=== PATIENT | female | born 1995 | race Two or more races ===

== ENCOUNTER 2018-05-08 20:52 | Emergency (ER) | payer OTHER ==
[~2018-05-08] VITALS: Ht 157.5 cm; Wt 53.1 kg
[2018-05-08 21:23] VITALS: BP 108/61
[2018-05-08] MEDS ORDERED: NAPR500T8 PO (21:52)
[2018-05-08] MEDS ORDERED: ORPH100T PO (21:52)
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
[2018-05-08] MEDS ORDERED: KETOROLAC 30 MG/ML VIAL. IM ONE (22:00)
== END 2018-05-08 22:02 | disposition home or self-care (01) ==
LOC: ER 20:52
DX: M54.42 Lumbago with sciatica, left side (principal)
CPT/HCPCS: 81025; 96372; 99283; J1885

== ENCOUNTER 2018-05-25 19:11 | Emergency (ER) | payer OTHER ==
[~2018-05-25] VITALS: Ht 162.6 cm; Wt 53.1 kg
[~2018-05-25 19:11] MED LIST: NAPR500T8 PO; ORPH100T PO
[2018-05-25 19:30] VITALS: BP 113/59
[2018-05-25 19:55] LABS: BILIRUBIN,URINE NEGATIVE (NEG); CLARITY,URINE CLEAR; COLOR,URINE YELLOW; NITRITE,URINE NEGATIVE (NEG); PH,URINE 6.5; PROTEIN,URINE NEGATIVE (NEG-TRACE); UROBILINOGEN,URINE 0.2 mg/dL (0.2 mg/dL)
[2018-05-25 20:08] LABS: BACTERIA,URINE FEW /HPF (0-FEW); RBC,URINE OCC /HPF (0-2); SQUAMOUS EPITHELIAL CELL,UR FEW /LPF; WBC,URINE OCC /HPF (0-4)
--- NOTE | 2018-05-25 20:55 | RAD ---
Examination: PELVIS COMPLETE History: PELVIC PAIN X'S 4 DAYS. PT DENIES ANY ABNORMAL BLEEDING OR DISCHARGE. PT STATES LAST PERIOD WAS IN JANUARY WHEN IUD WAS INSERTED. G0,P0. Comparison/Correlation: None Findings: Transabdominal and transvaginal pelvic ultrasound exam was performed. Transvaginal technique was utilized to better assess the adnexal structures. Uterus measures 7.3 cm x 5.5 cm x 4.2 cm. Endometrial thickness is 0.25 cm. Myometrium is normal. Right ovary measures 2.6 cm x 2.7 cm x 1.8 cm. Left ovary measures 3.18 x 3 cm x 2.5 cm. Bilateral ovarian flow on color and spectral Doppler imaging is normal. Left adnexal cyst measuring 2.2 cm diameter is present. Adnexal follicles are present laterally. Intrauterine device is present within the endometrial cavity. No pelvic free fluid. Impression: Left adnexal cyst is physiologic in appearance. Intrauterine device in place. Electronically signed by: Demarcus Lai MD (05/25/2018 8:52 PM) [facility]
--- NOTE | 2018-05-25 21:10 | PHYS DOC ---
Past Medical History Past Medical History: No Pertinent History Past Surgical History: No Surgical History Alcohol Use: None Drug Use: None Adult General Chief Complaint Chief Complaint: PELVIC PAIN HPI HPI Patient is a 22 year old female who presents with pelvic pain that started a few days ago that is increased. The patient does have an IUD in place and states that she has had no problems with her IUD in the past. She denies any vaginal discharge, possibility of sexually transmitted disease or . She denies fever or abdominal pain. Review of Systems Review of Systems Constitutional: Denies fever or chills [] Eyes: Denies change in visual acuity, redness, or eye pain [] HENT: Denies nasal congestion or sore throat [] Respiratory: Denies cough or shortness of breath [] Cardiovascular: No additional information not addressed in HPI [] GI: See history of present illness : Denies dysuria or hematuria [] Musculoskeletal: Denies back pain or joint pain [] Integument: Denies rash or skin lesions [] Neurologic: Denies headache, focal weakness or sensory changes [] Endocrine: Denies polyuria or polydipsia [] All other systems were reviewed and found to be within normal limits, except as documented in this note. Allergies Allergies Allergies Coded Allergies Type Severity Reaction Last Updated Verified No Known Drug Allergies 05/08/18 No Physical Exam Physical Exam Constitutional: Well developed, well nourished, no acute distress, non-toxic appearance. [] Neck: Normal range of motion, no tenderness, supple, no stridor. [] Cardiovascular:Heart rate regular rhythm, no murmur [] Lungs & Thorax: Bilateral breath sounds clear to auscultation [] Abdomen: Bowel sounds normal, soft, mild suprapubic tenderness with palpation, no masses, no pulsatile masses. [] Skin: Warm, dry, no erythema, no rash. [] Back: No tenderness, no CVA tenderness. [] Extremities: No tenderness, no cyanosis, no clubbing, ROM intact, no edema. [] Neurologic: Alert and oriented X 3, normal motor function, normal sensory function, no focal deficits noted. [] Psychologic: Affect normal, judgement normal, mood normal. [] Current Patient Data Vital Signs Vital Signs Date Time Temp Pulse Resp B/P (MAP) Pulse Ox O2 Delivery O2 Flow Rate FiO2 10/27/18 19:30 98.1 84 16 113/59 (77) 99 Room Air 98.1 Lab Values Laboratory Tests Test 05/25/18 19:30 05/25/18 19:41 Urine Collection Type Unknown Urine Color Yellow Urine Clarity Clear Urine pH 6.5 Urine Specific [place] >=1.030 Urine Protein Negative mg/dL (NEG-TRACE) Urine Glucose (UA) Negative mg/dL (NEG) Urine Ketones (Stick) Negative mg/dL (NEG) Urine Blood Negative (NEG) Urine Nitrite Negative (NEG) Urine Bilirubin Negative (NEG) Urine Urobilinogen Dipstick 0.2 mg/dL (0.2 mg/dL) Urine Leukocyte Esterase Negative (NEG) Urine RBC Occ /HPF (0-2) Urine WBC Occ /HPF (0-4) Urine Squamous Epithelial Cells Few /LPF Urine Bacteria Few /HPF (0-FEW) Urine Mucus Slight /LPF POC Urine HCG, Qualitative Hcg negative (Negative) EKG EKG [] Radiology/Procedures Radiology/Procedures [] PATIENT: AMNA HERNANDEZ ACCOUNT: [id number] : 1995 LOCATION: ER AGE: 22 SEX: F EXAM STATUS: REG ER ORD. PHYSICIAN: DORA GODWIN APRN REASON: new onset pain, hx of IUD PROCEDURE: PELVIS COMPLETE Examination: PELVIS COMPLETE History: PELVIC PAIN X'S 4 DAYS. PT DENIES ANY ABNORMAL BLEEDING OR DISCHARGE. PT STATES LAST PERIOD WAS IN JANUARY WHEN IUD WAS INSERTED. G0,P0. Comparison/Correlation: None Findings: Transabdominal and transvaginal pelvic ultrasound exam was performed. Transvaginal technique was utilized to better assess the adnexal structures. Uterus measures 7.3 cm x 5.5 cm x 4.2 cm. Endometrial thickness is 0.25 cm. Myometrium is normal. Right ovary measures 2.6 cm x 2.7 cm x 1.8 cm. Left ovary measures 3.18 x 3 cm x 2.5 cm. Bilateral ovarian flow on color and spectral Doppler imaging is normal. Left adnexal cyst measuring 2.2 cm diameter is present. Adnexal follicles are present laterally. Intrauterine device is present within the endometrial cavity. No pelvic free fluid. Impression: Left adnexal cyst is physiologic in appearance. Intrauterine device in place. Electronically signed by: Demarcus Lau MD (05/25/2018 8:52 PM) [facility] DICTATED and SIGNED BY: DEMARCUS LAU MD DATE: 05/25/182046 Course & Med Decision Making Course & Med Decision Making Pertinent Labs and Imaging studies reviewed. (See chart for details) [] Dragon Disclaimer Dragon Disclaimer This electronic medical record was generated, in whole or in part, using a voice recognition dictation system. Departure Departure Impression: Primary Impression: Ovarian cyst Disposition: HOME, SELF-CARE Condition: STABLE Referrals: WILBER HANNAH MD (PCP) Patient Instructions: Ovarian Cyst Additional Instructions: Take your at home pain medication. Follow-up with your railroad car checker for further evaluation in 3 days or return to the emergency department if worsening. Attending Signature Attending Signature I have reviewed the PA/INVENTORY COORDINATOR's note and plan of care. I was available for consultation as needed during the patient's visit in the emergency department. I agree with the clinical impression, plan, and disposition. DORA GODWIN APRN May 25, 2018 21:10 NAOMI CHUN DO May 30, 2018 09:59
== END 2018-05-25 21:31 | disposition home or self-care (01) ==
LOC: ER 19:11
DX: N83.202 Unspecified ovarian cyst, left side (principal)
CPT/HCPCS: 76856; 81001; 81025; 99285-25

== ENCOUNTER 2018-09-05 14:24 | Emergency (ER) | payer OTHER ==
[~2018-09-05] VITALS: Ht 157.5 cm; Wt 54.4 kg
[2018-09-05] MEDS ORDERED: DIPHTH,PERTUSS(ACELL),TET TOX 0.5 ML DISP.SYRIN. VAX IM ONE (15:00)
[2018-09-05 15:10] LABS: BASO # 0.1 x10^3/uL (0.0-0.2); BASO % 1 % (0-3); EOS # 0.3 x10^3/uL (0.0-0.7); EOS % 4 % (0-3); HEMATOCRIT 42.1 % (36.0-47.0); HEMOGLOBIN 14.2 g/dL (12.0-15.5); LYMPH # 1.2 x10^3/uL (1.0-4.8); LYMPH % 17 % (24-48); MEAN CORPUSCULAR HEMOGLOBIN 31 pg (25-35); MEAN CORPUSCULAR HGB CONC 34 g/dL (31-37); MEAN CORPUSCULAR VOLUME 92 fL (79-100); MONO # 0.5 x10^3/uL (0.0-1.1); MONO % 7 % (0-9); NEUT % 72 % (31-73); PLATELET COUNT 236 x10^3/uL (140-400); RED CELL DISTRIBUTION WIDTH 12.6 % (11.5-14.5); WHITE BLOOD COUNT 6.9 x10^3/uL (4.0-11.0)
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
[2018-09-05 15:20] LABS: CALCIUM 8.8 mg/dL (8.5-10.1); CREATININE 0.7 mg/dL (0.6-1.0); GFR 106.7; POTASSIUM 3.7 mmol/L (3.5-5.1)
[2018-09-05 15:22] LABS: PREG TEST PT QUAL NEGATIVE (NEG)
[2018-09-05] MEDS ORDERED: TETANUS AND DIPHTHERIA TOX/PF 0.5 ML DISP.SYRIN. VAX IM ONE (15:30)
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
[2018-09-05] MEDS ORDERED: LIDOCAINE 1% PF 2 ML VIAL. INJ ONE (16:15)
[2018-09-05 16:53] LABS: BILIRUBIN,URINE NEGATIVE (NEG); CLARITY,URINE CLEAR; COLOR,URINE YELLOW; NITRITE,URINE NEGATIVE (NEG); PH,URINE 5.5; PROTEIN,URINE NEGATIVE (NEG-TRACE); UROBILINOGEN,URINE 0.2 mg/dL (0.2 mg/dL)
[2018-09-05] MEDS ORDERED: NEOMY/BACITR/POLYMYXIN OINT PACKET. TP ONE (17:00)
[2018-09-05 17:03] LABS: BACTERIA,URINE FEW /HPF (0-FEW); RBC,URINE OCC /HPF (0-2); SQUAMOUS EPITHELIAL CELL,UR OCC /LPF
[2018-09-05] MEDS ORDERED: ORPH100T PO (17:11)
[2018-09-05] MEDS ORDERED: NAPR-514 PO (17:11)
[2018-09-05 17:45] VITALS: BP 103/53
== END 2018-09-05 17:49 | disposition home or self-care (01) ==
LOC: ER 14:24
DX: S81.812A Laceration without foreign body, left lower leg, initial encounter (principal); S16.1XXA Strain of muscle, fascia and tendon at neck level, initial encounter; S60.212A Contusion of left wrist, initial encounter; S60.222A Contusion of left hand, initial encounter; S09.8XXA Other specified injuries of head, initial encounter; V57.5XXA Driver of pick-up truck or van injured in collision with fixed or stationary object in traffic accident, initial encounter; Y93.89 Activity, other specified; Y92.410 Unspecified street and highway as the place of occurrence of the external cause; Y99.8 Other external cause status
CPT/HCPCS: 12001; 36415; 70450; 72125; 73110; 73130; 73590; 80048; 81001; 84703; 85025; 90471; 90714; 99285

== ENCOUNTER 2020-08-17 09:36 | Observation (INO) | payer OTHER ==
[~2020-08-17 09:36] MED LIST changes: +NAPR-514 PO
[2020-08-17] MEDS ORDERED: IV RINGERS,LACTATED 500ML 1,000 ML IV PRN (10:30)
[2020-08-17] MEDS ORDERED: ONDANSETRON PF 4 MG/2 ML VIAL. IVP PRN (10:30)
[2020-08-17] MEDS ORDERED: METOCLOPRAMIDE HCL 10 MG/2 ML VIAL. IVP ONE (10:30)
[2020-08-17 10:46] LABS: BILIRUBIN,URINE SMALL (NEG); CLARITY,URINE CLEAR; COLOR,URINE AMBER; NITRITE,URINE NEGATIVE (NEG); PROTEIN,URINE NEGATIVE (NEG-TRACE)
[2020-08-17] MEDS: IV RINGERS,LACTATED 1000ML 1,000 ML IV SCH ×2 (11:17→13:16)
[2020-08-17 11:32] LABS: BACTERIA,URINE 0 /HPF (0-FEW); RBC,URINE OCC /HPF (0-2); WBC,URINE OCC /HPF (0-4)
== END 2020-08-17 15:55 | disposition home or self-care (01) ==
LOC: 3 SO LND 09:36
PROVIDERS: ADMIT Obstetrics & Gynecology; ATTEND Obstetrics & Gynecology
DX: O21.9 Vomiting of pregnancy, unspecified (principal); Z3A.19 19 weeks gestation of pregnancy
CPT/HCPCS: 81001; 96361; 96374; 96375; G0378; G0379; J2405; J2765; J7120; 59025